=== PATIENT | female | born 1950 | race Caucasian/White ===

== ENCOUNTER 2017-03-27 19:26 | Inpatient (IN) | payer OTHER ==
[~2017-03-27] VITALS: Ht 165.1 cm; Wt 94.0 kg
[2017-03-27 19:48] LABS: BASOPHIL COUNT 0.1 K/uL (0-0.1); EOSINOPHIL (%) 2.1 % (0-5); EOSINOPHIL COUNT 0.4 K/uL (0-0.3); HEMATOCRIT 40.2 % (36.0-46.0); IMMATURE GRANULOCYTE (%) 0.4 % (0.0-0.7); IMMATURE GRANULOCYTE COUNT 0.1 K/uL; LYMPHOCYTE COUNT 4.7 K/uL (1.0-2.8); MCH 28.3 PG (29.0-34.0); MCHC 32.8 G/DL (30.0-36.0); MCV 86.1 FL (83-99); MEAN PLAT.VOLUME 10.2 uM^3 (9.5-12.4); MONOCYTE (%) 5.5 % (3-12); MONOCYTE COUNT 1.1 K/uL (0-0.8); NEUTROPHIL (%) 67.2 % (45-76); PLATELET COUNT 364 K/uL (156-360); RBC DIS.WIDTH-CV 12.9 % (11.8-14.6); RBC DIS.WIDTH-SD 40.1 % (39-53); RED BLOOD COUNT 4.67 M/uL (3.80-5.20); WHITE BLOOD COUNT 19.3 K/uL (4.1-10.2)
[2017-03-27 19:58] LABS: AMYLASE 64 IU/L (1-118); CHLORIDE 101 mEq/L (99-109); POTASSIUM 3.9 mEq/L (3.7-5.4); SODIUM 139 mEq/L (136-147)
[2017-03-27 20:00] LABS: GLUCOSE 248 mg/dL (70-99); PROTHROMBIN TIME 10.2 (9.2-11.2); PTT 25.3 (25-32)
[2017-03-27 20:01] LABS: ANION GAP 14 MEQ/L (2-14)
[2017-03-27 20:03] LABS: SERUM ETHYL ALCOHOL < 10 mg/dL
[2017-03-27 20:04] LABS: GFR ESTIMATE (CALCULATED) 53 mL/min/
[2017-03-27 20:05] LABS: UREA NITROGEN (BUN) 15 mg/dL (9-23)
[2017-03-27 20:07] LABS: LIPASE 59 U/L (1.0-51.0)
[2017-03-27 20:10] LABS: TROP-I INTERPRETATION NEGATIVE; TROPONIN-I 0.02 ng/mL (0.0-0.30)
[2017-03-27] MEDS ORDERED: AMLODIPINE BESYL5 MG PO (20:51)
[2017-03-27] MEDS ORDERED: ATORVASTATIN CA10 MG PO (20:51)
[2017-03-27] MEDS ORDERED: GLIMEPIRIDE4 MG PO (20:51)
[2017-03-27] MEDS ORDERED: METFORMIN HCL1000 MG PO (20:51)
[2017-03-27] MEDS ORDERED: OMEPRAZOLE40 M1 PO (20:51)
[2017-03-28 01:58] VITALS: BP 172/81
[2017-03-28 02:25] LABS: TROP-I INTERPRETATION NEGATIVE; TROPONIN-I 0.15 ng/mL (0.0-0.30)
[2017-03-28 03:24] VITALS: BP 149/67
[2017-03-28 03:30] LABS: HDL CHOLESTEROL 38 MG/DL (Desirable>=50); LDL CHOLESTEROL 53 mg/dL (Desirable<100); NON-HDL CHOLESTEROL 98 mg/dL (Desirable<160); TOTAL CHOLESTEROL 136 mg/dL (Desirable<200); TRIGLYCERIDES 224 MG/DL (Normal: <150)
[2017-03-28 06:47] LABS: Estimated Average Glucose 177 mg/dL (70-123); HEMOGLOBIN A1c (GLYCOHEMOGLOB) 7.8 % HGB (Below 5.7)
[2017-03-28 08:15] VITALS: BP 149/73
[2017-03-28 08:57] LABS: TROP-I INTERPRETATION NEGATIVE; TROPONIN-I 0.15 ng/mL (0.0-0.30)
[2017-03-28 15:50] VITALS: BP 140/75
[2017-03-28 16:35] LABS: POINT-OF-CARE METER ID UU13113781
[2017-03-28 20:00] VITALS: BP 138/75; BP 143/78; BP 145/80
[2017-03-28 20:35] LABS: TROP-I INTERPRETATION POSITIVE; TROPONIN-I 2.29 ng/mL (0.0-0.30)
[2017-03-28 20:49] LABS: POINT-OF-CARE METER ID UU14174216
[2017-03-29 00:23] VITALS: BP 144/82
[2017-03-29 05:07] VITALS: BP 138/70
[2017-03-29 08:27] LABS: BASOPHIL COUNT 0.1 K/uL (0-0.1); EOSINOPHIL (%) 2.3 % (0-5); EOSINOPHIL COUNT 0.3 K/uL (0-0.3); HEMATOCRIT 33.8 % (36.0-46.0); IMMATURE GRANULOCYTE (%) 0.3 % (0.0-0.7); INSTRUMENT ABS NEUTROPHIL CT 8.9 K/uL; LYMPHOCYTE COUNT 3.1 K/uL (1.0-2.8); MCH 28.4 PG (29.0-34.0); MCHC 32.5 G/DL (30.0-36.0); MCV 87.1 FL (83-99); MEAN PLAT.VOLUME 10.5 uM^3 (9.5-12.4); MONOCYTE (%) 5.8 % (3-12); MONOCYTE COUNT 0.8 K/uL (0-0.8); NEUTROPHIL (%) 67.5 % (45-76); NEUTROPHIL COUNT 8.9 K/uL (1.8-6.4); PLATELET COUNT 264 K/uL (156-360); RBC DIS.WIDTH-CV 13.1 % (11.8-14.6); RED BLOOD COUNT 3.88 M/uL (3.80-5.20)
[2017-03-29 08:28] LABS: WHITE BLOOD COUNT 13.1 K/uL (4.1-10.2)
[2017-03-29 08:37] VITALS: BP 189/89
[2017-03-29 08:38] LABS: ALKALINE PHOSPHATASE 67 IU/L (3-129); ANION GAP 8 MEQ/L (2-14); CHLORIDE 106 MEQ/L (99-109); GFR ESTIMATE (CALCULATED) > 59 mL/min/; GLUCOSE 161 mg/dL (70-99); POTASSIUM 4.2 MEQ/L (3.7-5.4); SAMPLE HEMOLYSIS CHECK 0; SAMPLE ICTERIC CHECK 0; SAMPLE LIPEMIA CHECK 0; SODIUM 141 MEQ/L (136-147); TOTAL BILIRUBIN 0.4 MG/DL (0.0-1.0); UREA NITROGEN (BUN) 10 mg/dL (9-23)
[2017-03-29 09:12] LABS: TROP-I INTERPRETATION POSITIVE; TROPONIN-I 1.29 ng/mL (0.0-0.30)
[2017-03-29] MEDS ORDERED: ATORVASTATIN CA80 MG PO (10:30)
[2017-03-29] MEDS ORDERED: EFFIENT10 MG PO (10:30)
[2017-03-29] MEDS ORDERED: LISINOPRIL20 MG PO (10:33)
[2017-03-29] MEDS ORDERED: NITROSTAT0.4 MG SL (10:33)
[2017-03-29] MEDS ORDERED: ASPIR-LOW81 MG PO (10:33)
[2017-03-29] MEDS ORDERED: METOPROLOL SUCC25 MG PO (10:33)
[2017-03-29 11:00] VITALS: BP 179/84
== END 2017-03-29 12:45 | disposition home or self-care (01) | DRG 247 ==
LOC: EME 19:26 → EDOF 03-28 01:05 → 5WEST 03-28 01:05 → EDOF 03-28 01:05 → 5WEST 03-28 01:42 → 4EAST 03-28 15:42
PROVIDERS: Emergency Medicine; Hospitalist; Internal Medicine; Internal Medicine Interventional Cardiology; Student in an Organized Health Care Education/Training Program
DX: I21.4 Non-ST elevation (NSTEMI) myocardial infarction (principal); I42.9 Cardiomyopathy, unspecified; I16.0 Hypertensive urgency; I25.110 Atherosclerotic heart disease of native coronary artery with unstable angina pectoris; E78.5 Hyperlipidemia, unspecified; I34.0 Nonrheumatic mitral (valve) insufficiency; E11.9 Type 2 diabetes mellitus without complications; H54.7 Unspecified visual loss; E66.9 Obesity, unspecified; G47.30 Sleep apnea, unspecified; I69.398 Other sequelae of cerebral infarction; R01.1 Cardiac murmur, unspecified; R00.0 Tachycardia, unspecified; I25.2 Old myocardial infarction; Z68.34 Body mass index [BMI] 34.0-34.9, adult; Z88.5 Allergy status to narcotic agent; Z79.84 Long term (current) use of oral hypoglycemic drugs; Q24.9 Congenital malformation of heart, unspecified; Z90.710 Acquired absence of both cervix and uterus; Z88.6 Allergy status to analgesic agent; Z82.49 Family history of ischemic heart disease and other diseases of the circulatory system; Z80.9 Family history of malignant neoplasm, unspecified
CPT/HCPCS: 71275; 80048; 80053; 80061; 81003; 82150; 82948; 83036; 83690; 84484; 85025; 85027; 85347; 85610; 85730; 86900; 86901; 93005; 93306; 99281; 99285; C1769; C1874; C1887; G0480; J1200; J1644; J1815; J2060; J2250; J2270; J3010; J7030

== ENCOUNTER 2017-04-24 07:16 | Day surgery (SDC) | payer OTHER ==
[~2017-04-24] VITALS: Ht 163.8 cm; Wt 94.0 kg
[~2017-04-24 07:16] MED LIST: AMLODIPINE BESYL5 MG PO; ASPIR-LOW81 MG PO; ATORVASTATIN CA10 MG PO; ATORVASTATIN CA80 MG PO; EFFIENT10 MG PO; GLIMEPIRIDE4 MG PO; LISINOPRIL20 MG PO; METFORMIN HCL1000 MG PO; METOPROLOL SUCC25 MG PO; METOPROLOL SUCC50 MG PO; NITROSTAT0.4 MG SL; OMEPRAZOLE40 M1 PO
[2017-04-24] MEDS ORDERED: ASPIR 8181 M1 PO (08:32)
[2017-04-24 08:39] LABS: POINT-OF-CARE METER ID UU13113696; POINT-OF-CARE USER ID HMLCJM07
[2017-04-24 11:29] LABS: POINT-OF-CARE METER ID UU13113819
[2017-04-24 16:42] LABS: POINT-OF-CARE METER ID UU13113819
[2017-04-24 17:33] VITALS: BP 200/90
[2017-04-24 19:44] VITALS: BP 176/88
[2017-04-24 21:15] VITALS: BP 168/64
[2017-04-24 23:34] VITALS: BP 153/76
[2017-04-25 04:13] VITALS: BP 168/72
[2017-04-25 04:51] LABS: BASOPHIL COUNT 0.1 K/uL (0-0.1); EOSINOPHIL (%) 2.5 % (0-5); EOSINOPHIL COUNT 0.3 K/uL (0-0.3); IMMATURE GRANULOCYTE (%) 0.6 % (0.0-0.7); IMMATURE GRANULOCYTE COUNT 0.1 K/uL; INSTRUMENT ABS NEUTROPHIL CT 9.4 K/uL; LYMPHOCYTE COUNT 2.1 K/uL (1.0-2.8); MCH 28.5 PG (29.0-34.0); MCHC 32.9 G/DL (30.0-36.0); MCV 86.5 FL (83-99); MEAN PLAT.VOLUME 10.6 uM^3 (9.5-12.4); MONOCYTE (%) 6.6 % (3-12); MONOCYTE COUNT 0.8 K/uL (0-0.8); NEUTROPHIL (%) 73.6 % (45-76); NEUTROPHIL COUNT 9.4 K/uL (1.8-6.4); PLATELET COUNT 266 K/uL (156-360); RBC DIS.WIDTH-CV 12.4 % (11.8-14.6); RBC DIS.WIDTH-SD 39.8 % (39-53); RED BLOOD COUNT 3.93 M/uL (3.80-5.20); WHITE BLOOD COUNT 12.8 K/uL (4.1-10.2)
[2017-04-25 05:18] LABS: CHLORIDE 109 mEq/L (99-109); POTASSIUM 4.2 mEq/L (3.7-5.4); SODIUM 142 mEq/L (136-147)
[2017-04-25 05:19] LABS: GLUCOSE 174 mg/dL (70-99)
[2017-04-25 05:21] LABS: ANION GAP 6 MEQ/L (2-14)
[2017-04-25 05:23] LABS: GFR ESTIMATE (CALCULATED) > 59 mL/min/
[2017-04-25 05:24] LABS: UREA NITROGEN (BUN) 13 mg/dL (9-23)
[2017-04-25 07:44] VITALS: BP 134/90
[2017-04-25] MEDS ORDERED: LOSARTAN POTASS50 MG PO (11:26)
[2017-04-25 11:41] LABS: POINT-OF-CARE USER ID NUTSLF44
== END 2017-04-25 12:38 | disposition home or self-care (01) ==
LOC: CATH 07:16 → 2SOUTH 10:15 → 4EAST 10:15
PROVIDERS: Internal Medicine Interventional Cardiology
DX: I25.110 Atherosclerotic heart disease of native coronary artery with unstable angina pectoris (principal); I25.2 Old myocardial infarction; E78.5 Hyperlipidemia, unspecified; E11.65 Type 2 diabetes mellitus with hyperglycemia; Z79.84 Long term (current) use of oral hypoglycemic drugs; I10 Essential (primary) hypertension; G47.33 Obstructive sleep apnea (adult) (pediatric); E66.9 Obesity, unspecified; Z68.34 Body mass index [BMI] 34.0-34.9, adult; Z79.82 Long term (current) use of aspirin; Z87.891 Personal history of nicotine dependence; Z88.0 Allergy status to penicillin
CPT/HCPCS: 80048; 82948; 85025; 85347; C1769; C1874; C1887; G0378; J1644; J1815; J2250; J3010; J7030